=== PATIENT | male | born 1990 | race Caucasian/White ===

== ENCOUNTER 2024-05-06 17:08 | Emergency (ER) | payer OTHER ==
[~2024-05-06] VITALS: Ht 198.1 cm; Wt 99.8 kg
[2024-05-06] MEDS ORDERED: CEFTRIAXONE SODIUM 2,000 MG VIAL IV ONE (17:45)
[2024-05-06 18:00] LABS: HEMATOCRIT 42.6 % (39.0-48.0); HEMOGLOBIN 14.8 g/dL (13-16.00); MEAN CELL VOLUME 92.9 fL (80.0-100.00); MEAN CORPUSCULAR HEMOGLOBIN 32.2 pg (27.00-32.0); MEAN CORPUSCULAR HGB CONC 34.7 g/dl (32.0-36.0); PLATELET COUNT 251 K/uL (150-450); RED BLOOD COUNT 4.59 M/uL (4.00-6.00); RED CELL DISTRIBUTION WIDTH 13.3 % (11.5-14.5)
[2024-05-06] MEDS ORDERED: AMOX-CLAV 875-1 EACH PO (18:09)
== END 2024-05-06 18:30 | disposition home or self-care (01) ==
LOC: ER 17:10
PROVIDERS: General Practice
DX: J03.80 Acute tonsillitis due to other specified organisms (principal)